=== PATIENT | female | born 1945 | race Caucasian/White ===

== ENCOUNTER 2016-07-09 09:08 | Inpatient (IN) | payer MEDICARE, BC ==
[~2016-07-09] VITALS: Ht 165.1 cm; Wt 44.2 kg
[~2016-07-09 09:08] MED LIST: ALPR0.5T6 PO; BUPR150T6 PO; DIVA500T4 PO; MIRT15TA3 PO; MORP30TA3 PO; OXYC5TAB PO; PARO10TA3 PO
[2016-07-09] MEDS ORDERED: MAGNESIUM HYDROXIDE 2,400 MG/30 ML ORAL.SUSP. PO PRN (11:00)
[2016-07-09] MEDS ORDERED: tiZANidine 4 MG TABLET. PO PRN (11:00)
[2016-07-09] MEDS ORDERED: OXYCODONE/APAP 7.5/325 TABLET. PO PRN (11:00)
[2016-07-09] MEDS ORDERED: MAG HYDROX/ALUMINUM HYD/SIMETH 30 ML ORAL.SUSP PO PRN (11:00)
[2016-07-09] MEDS ORDERED: 0.9 % SODIUM CHLORIDE 10 ML DISP.SYRIN. IV PRN (11:00)
--- NOTE | 2016-07-09 11:48 | PDOC1 ---
History and Physical Date of Admission Date of Admission DATE: 07/09/16 TIME: 11:44 Identification/Chief Complaint Chief Complaint Intractable migraine Source Source: Chart review, Patient History of Present Illness History of Present Illness The patient is a 70-year-old right-handed female whom I have followed for 25 years regarding intractable migraine headaches. 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 She has failed on a variety of medications including Botox. She has failed on occipital nerve stimulator. Occasionally she responds to pulse steroids. She almost always responds to a course of DHE, with the last course 5 months ago giving her at least 3 weeks of relief. Her headaches have been worse since he underwent electroconvulsive therapy last fall. There is no history of stroke, seizure, or significant head injury. Past Medical History CENTRAL NERVOUS SYSTEM: Migraine GI: Diverticulosis, Irritable bowel disease Hepatobiliary: Other Psych: Bipolar Past Surgical History Past Surgical History: Appendectomy, Cholecystectomy, , Hysterectomy, Other Family History Family History: No Significant Social History ALCOHOL: rare Drugs: None Current Problem List Problem List Problems Medical Problems: (1) Intractable migraine Status: Acute Problems: Current Medications Current Medications Current Medications Sodium Chloride (Normal Saline Flush) 3 ml PRN DAILY PRN IV AFTER MEDS AND BLOOD DRAWS; Start 07/09/16 at 11:00 Al Hydroxide/Mg Hydroxide (Mylanta Plus Xs) 30 ml PRN Q3HRS PRN PO HEARTBURN / GAS; Start 07/09/16 at 11:00 Magnesium Hydroxide (Milk Of Magnesia) 2,400 mg PRN Q12HR PRN PO CONSTIPATION; Start 07/09/16 at 11:00 Tizanidine HCl (Zanaflex) 8 mg PRN Q8HRS PRN PO MUSCLE SPASMS; Start 07/09/16 at 11:00 Mirtazapine (Remeron) 15 mg QHS PO ; Start 07/09/16 at 21:00 Oxycodone/ Acetaminophen (Percocet 7.5/ 325) 1 tab PRN Q6HRS PRN PO PAIN; Start 07/09/16 at 11:00 Divalproex Sodium (Depakote Er) 1,500 mg QHS PO ; Start 07/09/16 at 21:00 Dihydroergotamine Mesylate (Dhe) 1 mg Q8HRS IVP ; Start 07/09/16 at 14:00; Stop 07/12/16 at 06:00; Status UNV Metoclopramide HCl (Reglan) 10 mg Q8HRS IV ; Start 07/09/16 at 14:00; Status UNV Diphenoxylate HCl/ Atropine (Lomotil) 1 tab PRN QID PRN PO DIARRHEA; Start at 11:00 Active Scripts Active Paroxetine Hcl 10 Mg Tablet 30 Mg PO HS Oxycodone Hcl 5 Mg Tablet 5 Mg PO PRN Q6HRS PRN Morphine Sulfate Er (Morphine Sulfate) 30 Mg Tablet.er 30 Mg PO PRN BID PRN Mirtazapine 15 Mg Tablet 15 Mg PO QHS Depakote Er (Divalproex Sodium) 500 Mg Tab.er.24h 2,000 Mg PO QHS Bupropion Xl (Bupropion Hcl) 150 Mg Tab.er.24h 300 Mg PO DAILY Alprazolam 0.5 Mg Tablet 0.5 Mg PO PRN Q6HRS PRN Allergies Allergies: Coded Allergies: No Known Drug Allergies (Unverified , 01/14/16) ROS Review of System Negative for fevers, chills, weight loss, shortness of breath, chest pain, indigestion, hematochezia, melena, dysuria. Full 14-point review systems is negative. Physical Exam Physical Exam PHYSICAL EXAMINATION: Vital signs: see above. General appearance is normal and in no acute distress. HEENT: Normocephalic and nontraumatic. Eyes, nose, ears, and throat are unremarkable. Neck is supple. No lymphadenopathy. No bruits are heard over the carotid artery. No crepitus. Cardiovascular: S1, S2, regular rate and rhythm. Pulmonary: Clear to auscultation bilaterally. Abdomen: Bowel sounds are positive. Abdomen is soft, nontender, and nondistended. No organomegaly. No masses palpable. Extremities: No rash, lesions, or edema. No restriction of range of motion. No clubbing, cyanosis, edema NEUROLOGICAL EXAMINATION: Mental Status Examination: Alert. Oriented to time, place, and person. Answers questions and follows commends. Pupils are equal round and reactive to light and accommodation. Funduscopic exam: No papilledema. Extraocular movements are intact. Visual field exam shows no defect on the direct confrontation. No motor or sensory deficits on the facial exam. Uvula in the midline and the soft palate elevated symmetrically. No deviation of the tongue to any direction. Gross hearing is normal. Shoulder shrug normal. Muscle tone is normal. Muscle strength is 5. Deep tendon reflexes are 2+ all around. Plantar reflex is with flexion response bilaterally. [id number] test performance is accurate. Tandem walk test is accurate. Alternative movements are accurate. Romberg test is negative. Gait is normal. Sensory exam shows no deficits. No cerebellar signs are elicited. VTE Prophylaxis Ordered VTE Prophylaxis Devices: Yes VTE Pharmacological Prophylaxi: Yes Assessment/Plan Assessment/Plan Impression: Intractable daily migraine headache Bipolar disorder Plan: Labwork tomorrow, including sedimentation rate. DHE 45, Aggie protocol, patient understands risk, benefits, alternatives I omitting steroids as patient had some hyperglycemia last time. I do not see a need for repeat brain imaging studies Estimated length of stay is 3 days LG SCHWAB MD Jul 09, 2016 11:48
[2016-07-09 12:42] VITALS: BP 105/41
[2016-07-09] MEDS ORDERED: CLON0.5T PO (13:22)
[2016-07-09] MEDS ORDERED: LEVO25TA2 PO (13:22)
[2016-07-09] MEDS ORDERED: MIRT45TA PO (13:22)
[2016-07-09] MEDS: METOCLOPRAMIDE HCL 10 MG/2 ML VIAL. IV SCH ×2 (14:39→21:34)
[2016-07-09] MEDS: DIHYDROERGOTAMINE 1 MG/ML AMPUL. IVP SCH ×2 (14:44→22:18)
[2016-07-09 15:00] VITALS: BP 117/48
[2016-07-09] MEDS ORDERED: ALBUTEROL SULFATE 2.5 MG/3 ML NEBU. NEB PRN (16:45)
[2016-07-09] MEDS ORDERED: hydrALAZINE 20 MG/ML VIAL. IVP PRN (16:45)
[2016-07-09] MEDS ORDERED: ACETAMINOPHEN 325 MG TABLET. PO PRN (16:45)
[2016-07-09] MEDS ORDERED: HYDROCODONE/APAP 5/325MG TABLET. PO PRN (16:45)
[2016-07-09 19:00] VITALS: BP 139/49
[2016-07-09] MEDS: DIVALPROEX EXTENDED RELEASE 500 MG TAB.ER.24H. PO SCH (20:45)
[2016-07-09] MEDS: MIRTAZAPINE 15 MG TABLET PO SCH (20:45)
--- NOTE | 2016-07-09 21:23 | PDOC2 ---
CONSULT Date of Consult Date of Consult DATE: 07/09/16 TIME: 21:22 Reason for Consult Reason for Consult: Direct Admit Referring Physician Referring Physician: DR GONZALEZ History of Present Illness Reason for Visit: A 71 female with hx of Migraines for long time > 40 years, presented to the ER for intractable headaches, not better with home remedies, she has been following Dr Gonzalez for > 25 years, gets DHE frequently for migraine attacks , Pt was admitted directly, denies any symptoms, planned for 8 doses of DHE, At the time of my exam, pt is reading book, headache is minimal, 4/10, denies any fever, chills. Past Medical History CENTRAL NERVOUS SYSTEM: Migraine GI: Diverticulosis, Irritable bowel disease Hepatobiliary: Other Psych: Bipolar Past Surgical History Past Surgical History: Appendectomy, Cholecystectomy, , Hysterectomy, Other Family History Family History: No Significant Social History ALCOHOL: rare Drugs: None Current Problem List Problem List Problems Medical Problems: (1) Intractable migraine Status: Acute Current Medications Current Medications Current Medications Sodium Chloride (Normal Saline Flush) 3 ml PRN DAILY PRN IV AFTER MEDS AND BLOOD DRAWS; Start 07/09/16 at 11:00 Al Hydroxide/Mg Hydroxide (Mylanta Plus Xs) 30 ml PRN Q3HRS PRN PO HEARTBURN / GAS; Start 07/09/16 at 11:00 Magnesium Hydroxide (Milk Of Magnesia) 2,400 mg PRN Q12HR PRN PO CONSTIPATION; Start 07/09/16 at 11:00 Tizanidine HCl (Zanaflex) 8 mg PRN Q8HRS PRN PO MUSCLE SPASMS; Start 07/09/16 at 11:00 Mirtazapine (Remeron) 15 mg QHS PO Last administered on 07/09/16 20:45; Start 07/09/16 at 21:00 Oxycodone/ Acetaminophen (Percocet 7.5/ 325) 1 tab PRN Q6HRS PRN PO PAIN; Start 07/09/16 at 11:00 Divalproex Sodium (Depakote Er) 1,500 mg QHS PO Last administered on 07/09/16 20:45; Start 07/09/16 at 21:00 Dihydroergotamine Mesylate (Dhe) 1 mg Q8HRS IVP Last administered on 3/31/17at 14:44; Start 07/09/16 at 14:00; Stop 07/12/16 at 06:00 Metoclopramide HCl (Reglan) 10 mg Q8H IV Last administered on 07/09/16t 14:39; Start 07/09/16 at 13:30 Diphenoxylate HCl/ Atropine (Lomotil) 1 tab PRN QID PRN PO DIARRHEA; Start at 11:00 Acetaminophen (Tylenol) 325 mg PRN Q6HRS PRN PO MILD PAIN / TEMP; Start at 16:45 Acetaminophen/ Hydrocodone Bitart (Lortab 5/325) 1 tab PRN Q6HRS PRN PO MODERATE TO SEVERE PAIN; Start 07/09/16 at 16:45 Hydralazine HCl (Apresoline) 10 mg PRN Q4HRS PRN IVP ELEVATED BP, SEE COMMENTS ; Start 07/09/16 at 16:45 Ondansetron HCl (Zofran) 4 mg PRN Q8HRS PRN IV NAUSEA/VOMITING; Start 07/09/16 at 16:45 Albuterol Sulfate (Ventolin Neb Soln) 2.5 mg PRN Q4HRS PRN NEB SHORTNESS OF BREATH; Start 07/09/16 at 16:45 Active Scripts Active Paroxetine Hcl 10 Mg Tablet 30 Mg PO HS Oxycodone Hcl 5 Mg Tablet 5 Mg PO PRN Q6HRS PRN Morphine Sulfate Er (Morphine Sulfate) 30 Mg Tablet.er 30 Mg PO PRN BID PRN Mirtazapine 15 Mg Tablet 15 Mg PO QHS Depakote Er (Divalproex Sodium) 500 Mg Tab.er.24h 2,000 Mg PO QHS Bupropion Xl (Bupropion Hcl) 150 Mg Tab.er.24h 300 Mg PO DAILY Alprazolam 0.5 Mg Tablet 0.5 Mg PO PRN Q6HRS PRN Reported Klonopin (Clonazepam) 0.5 Mg Tablet 1 Tab PO DAILY Synthroid (Levothyroxine Sodium) 25 Mcg Tablet 1 Tab PO DAILY Remeron (Mirtazapine) 45 Mg Tablet 45 Mg PO DAILY Allergies Allergies: Coded Allergies: No Known Drug Allergies (Unverified , 01/14/16) ROS Review of System CONSTITUTIONAL: No fever or chills EYES: No recent changes SKIN: No rash or itching CARDIOVASCULAR: No chest pain, syncope, palpitations, or edema RESPIRATORY: No SOB or cough GASTROINTESTINAL: No nausea, vomiting or abdominal pain NEUROLOGICAL: headaches ENDOCRINE: No cold or heat intolerance GENITOURINARY: No urgency or frequency of urination MUSCULOSKELETAL: No back pain or joint pain LYMPHATICS: No enlarged lymph nodes PSYCHIATRIC: No anxiety or depression Physical Exam Physical Exam GENERAL: No apparent distress. Alert and oriented. HEENT: Head normocephalic, atraumatic. NECK: Supple LUNGS: Clear to auscultation. HEART: RRR, S1, S2 present, pulses intact ABDOMEN: Soft, positive bowel sounds. EXTREMITIES: No cyanosis or edema. NEUROLOGIC: Normal speech, normal tone PSYCHIATRIC: Normal affect, normal mood. SKIN: No ulceration. Vitals VITALS Vital Signs Date Time Temp Pulse Resp B/P Pulse Ox O2 Delivery O2 Flow Rate FiO2 07/09/16 19:00 98.1 60 18 139/49 98 Room Air 98.1 Assessment/Plan Assessment/Plan Intractable Migraine attacks Bipolar disorder Plan DHE per protocol. PRN Tylenol CBC/BMP in am Hemodynamically stable. supportive care JONAS MA MD Jul 09, 2016 21:23
[2016-07-09 23:00] VITALS: BP 151/51
[2016-07-10 03:00] VITALS: BP 131/52
[2016-07-10 05:33] LABS: BASO % 1 % (0-3); EOS % 3 % (0-3); HEMATOCRIT 38.9 % (36.0-47.0); HEMOGLOBIN 12.9 g/dL (12.0-15.5); LYMPH # 1.8 x10^3/uL (1.0-4.8); LYMPH % 36 % (24-48); MEAN CORPUSCULAR HEMOGLOBIN 32 pg (25-35); MEAN CORPUSCULAR HGB CONC 33 g/dL (31-37); MEAN CORPUSCULAR VOLUME 97 fL (79-100); MONO % 9 % (0-9); NEUT % 51 % (31-73); PLATELET COUNT 135 x10^3/uL (140-400); RED BLOOD COUNT 4.02 x10^6/uL (3.50-5.40); RED CELL DISTRIBUTION WIDTH 13.3 % (11.5-14.5)
[2016-07-10] MEDS: METOCLOPRAMIDE HCL 10 MG/2 ML VIAL. IV SCH (05:34)
[2016-07-10 05:59] LABS: CALCIUM 8.7 mg/dL (8.5-10.1); CREATININE 0.9 mg/dL (0.6-1.0); GFR 61.7; POTASSIUM 3.8 mmol/L (3.5-5.1)
[2016-07-10] MEDS: DIHYDROERGOTAMINE 1 MG/ML AMPUL. IVP SCH ×3 (06:18→22:00)
[2016-07-10 07:41] VITALS: BP 140/54
--- NOTE | 2016-07-10 09:26 | PDOC ---
PROGRESS NOTES Chief Complaint Chief Complaint Intractable migraine ASSESSMENT AND PLAN: 1. Migraine: med regimen as per neurology 2. Nausea: related to (1.). on reglan 3. HTN: borderline high, poss pain-related. hydralazine PRN 4. Bradycardia: asymptomatic. monitor. d/w her: apparently new to her, sees PCP regularly. may need O/P cardiac eval 5. Pain control: on percocet PRN 6. Prophylaxis: lovenox, PPI Vitals Vitals Vital Signs Date Time Temp Pulse Resp B/P Pulse Ox O2 Delivery O2 Flow Rate FiO2 07/10/16 07:41 98.6 44 16 140/54 94 Room Air 98.6 Physical Exam General: Alert, Oriented X3, Cooperative, No acute distress Heart: Regular rate Lungs: Clear Abdomen: Normal bowel sounds, Soft, No tenderness Extremities: No edema Skin: No rashes Labs LABS Laboratory Tests Test 07/10/16 04:55 White Blood Count 5.0x10^3/uL (4.0-11.0) Red Blood Count 4.02x10^6/uL (3.50-5.40) Hemoglobin 12.9g/dL (12.0-15.5) Hematocrit 38.9% (36.0-47.0) Mean Corpuscular Volume 97fL (79-100) Mean Corpuscular Hemoglobin 32pg (25-35) Mean Corpuscular Hemoglobin Concent 33g/dL (31-37) Red Cell Distribution Width 13.3% (11.5-14.5) Platelet Count 135x10^3/uL (140-400) Neutrophils (%) (Auto) 51% (31-73) Lymphocytes (%) (Auto) 36% (24-48) Monocytes (%) (Auto) 9% (0-9) Eosinophils (%) (Auto) 3% (0-3) Basophils (%) (Auto) 1% (0-3) Neutrophils # (Auto) 2.5x10^3uL (1.8-7.7) Lymphocytes # (Auto) 1.8x10^3/uL (1.0-4.8) Monocytes # (Auto) 0.5x10^3/uL (0.0-1.1) Eosinophils # (Auto) 0.2x10^3/uL (0.0-0.7) Basophils # (Auto) 0.0x10^3/uL (0.0-0.2) Sodium Level 145mmol/L (136-145) Potassium Level 3.8mmol/L (3.5-5.1) Chloride Level 111mmol/L (98-107) Carbon Dioxide Level 28mmol/L (21-32) Anion Gap 6 (6-14) Blood Urea Nitrogen 12mg/dL (7-20) Creatinine 0.9mg/dL (0.6-1.0) Estimated GFR (Cockcroft-Gault) 61.7 Glucose Level 85mg/dL (70-99) Calcium Level 8.7mg/dL (8.5-10.1) Review of Systems Review of Systems NESBITT pretty much resolved. no new c/o EDMUND PARK MD Jul 10, 2016 09:26
[2016-07-10] MEDS: ENOXAPARIN 40 MG/0.4 ML SYRINGE. SQ SCH (09:30)
[2016-07-10] MEDS: PANTOPRAZOLE 40 MG TABLET.DR. PO SCH (10:35)
[2016-07-10] MEDS ORDERED: METOCLOPRAMIDE HCL 10 MG/2 ML VIAL. IV PRN (10:45)
[2016-07-10] MEDS: LOPERAMIDE 2 MG CAPSULE PO PRN (11:05)
[2016-07-10 11:55] VITALS: BP 142/55
--- NOTE | 2016-07-10 12:53 | PDOC ---
PROGRESS NOTES Assessment Assessment IMPRESSION: Intractable headaches. Chronic migraine headache. Bipolar disorder. IBD Psychiatric problems. Other medical problems. RECOMMENDATIONS/PLAN: DHE [address] q[address] Henderson. Symptomatic treatment. Treat medical diseases. History of Present Illness The patient is a 70-year-old right-handed female whom I have followed for 25 years regarding intractable migraine headaches. 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 She has failed on a variety of medications including Botox. She has failed on occipital nerve stimulator. Occasionally she responds to pulse steroids. She almost always responds to a course of DHE, with the last course 5 months ago giving her at least 3 weeks of relief. Her headaches have been worse since he underwent electroconvulsive therapy last fall. There is no history of stroke, seizure, or significant head injury. She stated that her headaches were improved on 07/10. Past Medical History CENTRAL NERVOUS SYSTEM: Migraine GI: Diverticulosis, Irritable bowel disease Hepatobiliary: Other Psych: Bipolar Past Surgical History Past Surgical History: Appendectomy, Cholecystectomy, , Hysterectomy Family History No Significant Social History ALCOHOL: rare Drugs: None ALLERGY: Reviewed. MEDICATIONS: Refer to MAR REVIEW OF SYSTEMS: Constitutional: No malnutrition, weight loss, cachexia. Head: No traumatic brain or head injury. Skin: No edema, or rash. Ear: No infection, tinnitus. Eyes: No vision loss, or diplopia. Nose: No bleeding or purulent discharges. Hearing: No hearing decrease. Neck: No injury. Breast: No history of cancer, masses, or discharges. Cardiac: No CA, arrhythmia Pulmonary: No CPOD. GI: No GI Ulcer, GI bleeding Urinary/genital: UTI. Endocrine: No cousin face, craniofacial dysmorphism, polydactyly. Skeletomuscular: No muscular atrophy, deformity. Neurological: see HP. Psychiatric: Denies drug use/abuse. Otherwise, not [id number] review of systems. PHYSICAL EXAMINATION: General appearance in mild subacute distress. HEENT: Normocephalic and nontraumatic. Eyes, nose, ears, and throat are unremarkable. Hearing decrease. Neck is supple. No lymphadenopathy. No bruits are heard over the carotid artery. No Crepitus. Cardiovascular: S1, S2, regular rate and rhythm. Pulmonary: Clear to auscultation bilaterally. Abdomen: Bowel sounds are positive. Abdomen is soft, nontender, and nondistended. Extremities: No rash, lesions, or edema. No restriction of range of motion NEUROLOGICAL EXAMINATION: Alert. Oriented to time, place and person. PERRL. EOMI. CN: no focal findings. Muscle tone: within normal. Muscle strength: 5 DTR: 2 Plantar reflex: Flexor response bilaterally Gait: not examined in bed. Sensory exam: no abnormal findings. No cerebellar signs elicited. F-T-N test accurate. Objective Objective Vital Signs Date Time Temp Pulse Resp B/P Pulse Ox O2 Delivery O2 Flow Rate FiO2 07/10/16 11:55 97.9 51 16 142/55 94 Room Air 97.9 Intake and Output 07/10/16 07:00 Intake Total 750 ml Balance 750 ml Intake Oral 750 ml # Voids 6 Vitals Signs Vitals VS - Last 72 Hours, by Label Date Time Temp Pulse Resp B/P Pulse Ox O2 Delivery O2 Flow Rate FiO2 07/10/16 11:55 97.9 51 16 142/55 94 Room Air 97.9 07/10/16 08:00 Room Air 07/10/16 07:41 98.6 44 16 140/54 94 Room Air 98.6 07/10/16 03:00 98.1 60 16 131/52 98 Room Air 98.1 07/09/16 23:00 98.2 52 16 151/51 92 Room Air 98.2 07/09/16 20:20 Room Air 07/09/16 19:00 98.1 60 18 139/49 98 Room Air 98.1 07/09/16 15:00 97.1 71 16 117/48 96 97.1 07/09/16 12:42 96.7 64 16 105/41 93 Room Air 96.7 Laboratory Laboratory Laboratory Tests Test 07/10/16 04:55 White Blood Count 5.0x10^3/uL (4.0-11.0) Red Blood Count 4.02x10^6/uL (3.50-5.40) Hemoglobin 12.9g/dL (12.0-15.5) Hematocrit 38.9% (36.0-47.0) Mean Corpuscular Volume 97fL (79-100) Mean Corpuscular Hemoglobin 32pg (25-35) Mean Corpuscular Hemoglobin Concent 33g/dL (31-37) Red Cell Distribution Width 13.3% (11.5-14.5) Platelet Count 135x10^3/uL (140-400) Neutrophils (%) (Auto) 51% (31-73) Lymphocytes (%) (Auto) 36% (24-48) Monocytes (%) (Auto) 9% (0-9) Eosinophils (%) (Auto) 3% (0-3) Basophils (%) (Auto) 1% (0-3) Neutrophils # (Auto) 2.5x10^3uL (1.8-7.7) Lymphocytes # (Auto) 1.8x10^3/uL (1.0-4.8) Monocytes # (Auto) 0.5x10^3/uL (0.0-1.1) Eosinophils # (Auto) 0.2x10^3/uL (0.0-0.7) Basophils # (Auto) 0.0x10^3/uL (0.0-0.2) Sodium Level 145mmol/L (136-145) Potassium Level 3.8mmol/L (3.5-5.1) Chloride Level 111mmol/L (98-107) Carbon Dioxide Level 28mmol/L (21-32) Anion Gap 6 (6-14) Blood Urea Nitrogen 12mg/dL (7-20) Creatinine 0.9mg/dL (0.6-1.0) Estimated GFR (Cockcroft-Gault) 61.7 Glucose Level 85mg/dL (70-99) Calcium Level 8.7mg/dL (8.5-10.1) Medication Medications Current Medications Acetaminophen (Tylenol) 325 mg PRN Q6HRS PRN PO MILD PAIN / TEMP; Start at 16:45 Acetaminophen/ Hydrocodone Bitart (Lortab 5/325) 1 tab PRN Q6HRS PRN PO MODERATE TO SEVERE PAIN; Start 07/09/16 at 16:45 Albuterol Sulfate (Ventolin Neb Soln) 2.5 mg PRN Q4HRS PRN NEB SHORTNESS OF BREATH; Start 07/09/16 at 16:45 Dihydroergotamine Mesylate (Dhe) 1 mg Q8HRS IVP Last administered on 07/10/16t 06:18; Start 07/09/16 at 14:00; Stop 07/12/16 at 06:00 Divalproex Sodium (Depakote Er) 1,500 mg QHS PO Last administered on 07/09/16 20:45; Start 07/09/16 at 21:00 Enoxaparin Sodium (Lovenox 40mg Syringe) 40 mg Q24H SQ ; Start 07/10/16 at 09:30 Hydralazine HCl (Apresoline) 10 mg PRN Q4HRS PRN IVP ELEVATED BP, SEE COMMENTS ; Start 07/09/16 at 16:45 Loperamide HCl (Imodium) 2 mg PRN Q1HR PRN PO DIARRHEA Last administered on 07/10 11:05; Start 07/10/16 at 10:45 Metoclopramide HCl (Reglan) 10 mg PRN TID PRN IV NAUSEA; Start 07/10/16 at 10:45 Metoclopramide HCl (Reglan) 10 mg Q8H IV Last administered on 07/10/16 05:34; Start 07/09/16 at 13:30; Stop 07/10/16 at 10:43; Status DC Mirtazapine (Remeron) 15 mg QHS PO Last administered on 07/09/16 20:45; Start 07/09/16 at 21:00 Ondansetron HCl (Zofran) 4 mg PRN Q8HRS PRN IV NAUSEA/VOMITING; Start 07/09/16 at 16:45 Pantoprazole Sodium (Protonix) 40 mg DAILYAC PO Last administered on 07/10/16 10:35; Start 07/10/16 at 11:30 Comment Review of Relevant I have reviewed the following items hiral (where applicable) has been applied. AILEEN SANTOYO MD Jul 10, 2016 12:53
[2016-07-10] MEDS: DIPHENOXYLATE/ATROPINE TABLET. PO PRN ×2 (12:55→20:23)
[2016-07-10 15:49] VITALS: BP 121/31
[2016-07-10 19:30] VITALS: BP 137/37
[2016-07-10] MEDS: MIRTAZAPINE 15 MG TABLET PO SCH (20:23)
[2016-07-10] MEDS: DIVALPROEX EXTENDED RELEASE 500 MG TAB.ER.24H. PO SCH (20:23)
[2016-07-10 23:30] VITALS: BP 139/43
[2016-07-11] VITALS (7 sets, daily range): BP systolic 121–158; BP diastolic 38–60
[2016-07-11] MEDS: LOPERAMIDE 2 MG CAPSULE PO PRN ×4 (03:57→20:10)
[2016-07-11] MEDS: DIHYDROERGOTAMINE 1 MG/ML AMPUL. IVP SCH (05:53)
[2016-07-11] MEDS: ONDANSETRON PF 4 MG/2 ML VIAL. IV PRN ×2 (08:19→20:15)
[2016-07-11] MEDS: ENOXAPARIN 40 MG/0.4 ML SYRINGE. SQ SCH (08:21)
[2016-07-11] MEDS: PANTOPRAZOLE 40 MG TABLET.DR. PO SCH (08:21)
--- NOTE | 2016-07-11 10:19 | PDOC ---
PROGRESS NOTES Chief Complaint Chief Complaint Intractable migraine ASSESSMENT AND PLAN: 1. Migraine: med regimen as per neurology 2. Nausea: related to (1.). on reglan, but with diarrhea. switch to compazine 3. Diarrhea: chronic issue, but severe here. pt wants to go home ( embarrassed). increase lomotil to 2 4. HTN: borderline high, poss pain-related. hydralazine PRN 5. Bradycardia: asymptomatic. monitor. d/w her: apparently new to her, sees PCP regularly. HR dropping into 30s. cardiac consult, transfer to 2nd floor 6. Pain control: on percocet PRN 7. Prophylaxis: lovenox, PPI Vitals Vitals Vital Signs Date Time Temp Pulse Resp B/P Pulse Ox O2 Delivery O2 Flow Rate FiO2 07/11/16 09:20 16 95 Room Air 07/11/16 07:42 97.5 41 158/55 97.5 Physical Exam General: Alert, Oriented X3, Cooperative, No acute distress Heart: Other (idania) Lungs: Clear Abdomen: Normal bowel sounds, Soft, No tenderness Extremities: No edema Skin: No rashes Labs LABS Laboratory Tests Test 07/10/16 11:35 Erythrocyte Sedimentation Rate 8 (0-25) Review of Systems Review of Systems more nauseous today, + diarrhea, wants to go home EDMUND PARK MD Jul 11, 2016 10:19
--- NOTE | 2016-07-11 10:39 | EKG ---
[facility] [address] [place] [address] Test Date: 2016-07-11 Test Time: 09:31:51 Pat Name: NABIL TOMPKINS Department: Room: [facility] Gender: F Disease Control Inspector: NARESH : 1945 Requested By: EDMUND PARK Order Number: [id number] Reading MD: Jaci Becerril Measurements Intervals [place] Rate: 42 P: 54 NE: 134 QRS: 27 QRSD: 78 T: 31 QT: 468 QTc: 393 Interpretive Statements SINUS BRADYCARDIA QRS(T) CONTOUR ABNORMALITY CONSIDER ANTEROLATERAL MYOCARDIAL DAMAGE POSSIBLY ABNORMAL ECG RI6.01 Unconfirmed report No previous ECG available for comparison Electronically Signed On 07-11-2016 19:28:42 CDT by Jaci Becerril
[2016-07-11] MEDS ORDERED: OXYCODONE IR 5 MG TABLET. PO PRN (10:45)
[2016-07-11] MEDS ORDERED: CLONAZEPAM 0.5 MG TABLET PO PRN (10:45)
[2016-07-11] MEDS ORDERED: MORPHINE ER 30 MG TABLET.ER PO PRN (10:45)
[2016-07-11] MEDS: LEVOTHYROXINE 25 MCG TABLET. PO SCH (11:26)
[2016-07-11] MEDS: buPROPion XL 150 MG TAB.ER.24H. PO SCH (11:27)
[2016-07-11] MEDS ORDERED: DIPHENOXYLATE/ATROPINE TABLET. PO PRN (11:30)
[2016-07-11] MEDS ORDERED: PROCHLORPERAZINE 10 MG/2 ML VIAL. IV ONE (12:00)
--- NOTE | 2016-07-11 15:03 | PDOC ---
PROGRESS NOTES Assessment Assessment Intractable headaches. Chronic migraine headache. Bradycardia, HR 34 A-V block Mobitz grade II. Bigeminal, frequent. CAD Bipolar disorder. IBD Psychiatric problems. Other medical problems. RECOMMENDATIONS/PLAN: Discontinue DHE. Transferred to Cardiology Unit. Cardiology consulted. Symptomatic treatment for headache. Treat medical diseases. History of Present Illness The patient is a 70-year-old right-handed female whom I have followed for 25 years regarding intractable migraine headaches. 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 She has failed on a variety of medications including Botox. She has failed on occipital nerve stimulator. Occasionally she responds to pulse steroids. She almost always responds to a course of DHE, with the last course 5 months ago giving her at least 3 weeks of relief. Her headaches have been worse since he underwent electroconvulsive therapy last fall. There is no history of stroke, seizure, or significant head injury. She stated that her headaches were improved to 1-2/10 since 07/10. She was found to have bradycardia HR 30s in am on 07/11, so she was put on telemetry monitoring which showed HR 34 to 38/min, frequent bigeminal. Reviewed her EKG monitoring and thought she had Mobitz grade II A-V block that lasted for > 2 hours. So she was transferred to Cardiology Unit. DHE was discontinued agreeable by Neurology and Cardiology. Past Medical History CENTRAL NERVOUS SYSTEM: Migraine GI: Diverticulosis, Irritable bowel disease Hepatobiliary: Other Psych: Bipolar Past Surgical History Past Surgical History: Appendectomy, Cholecystectomy, , Hysterectomy Family History No Significant Social History ALCOHOL: rare Drugs: None ALLERGY: Reviewed. MEDICATIONS: Refer to MAR REVIEW OF SYSTEMS: Constitutional: No malnutrition, weight loss, cachexia. Head: No traumatic brain or head injury. Skin: No edema, or rash. Ear: No infection, tinnitus. Eyes: No vision loss, or diplopia. Nose: No bleeding or purulent discharges. Hearing: No hearing decrease. Neck: No injury. Breast: No history of cancer, masses, or discharges. Cardiac: No NH, arrhythmia Pulmonary: No CPOD. GI: No GI Ulcer, GI bleeding Urinary/genital: UTI. Endocrine: No cousin face, craniofacial dysmorphism, polydactyly. Skeletomuscular: No muscular atrophy, deformity. Neurological: see HP. Psychiatric: Denies drug use/abuse. Otherwise, not [id number] review of systems. PHYSICAL EXAMINATION: General appearance in mild subacute distress. HEENT: Normocephalic and nontraumatic. Eyes, nose, ears, and throat are unremarkable. Hearing decrease. Neck is supple. No lymphadenopathy. No bruits are heard over the carotid artery. No Crepitus. Cardiovascular: S1, S2, regular rate and rhythm. Pulmonary: Clear to auscultation bilaterally. Abdomen: Bowel sounds are positive. Abdomen is soft, nontender, and nondistended. Extremities: No rash, lesions, or edema. No restriction of range of motion NEUROLOGICAL EXAMINATION: Alert. Oriented to time, place and person. PERRL. EOMI. CN: no focal findings. Muscle tone: within normal. Muscle strength: 5- DTR: 2 Plantar reflex: Flexor response bilaterally Gait: not examined in bed. Sensory exam: no abnormal findings. No cerebellar signs elicited. F-T-N test accurate. Objective Objective Vital Signs Date Time Temp Pulse Resp B/P Pulse Ox O2 Delivery O2 Flow Rate FiO2 07/11/16 13:15 98.1 36 16 121/38 94 Room Air 98.1 Intake and Output 07/11/16 07:00 Intake Total 600 ml Balance 600 ml Intake Oral 600 ml # Voids 3 # Bowel Movements 2 Vitals Signs Vitals VS - Last 72 Hours, by Label Date Time Temp Pulse Resp B/P Pulse Ox O2 Delivery O2 Flow Rate FiO2 07/11/16 13:15 98.1 36 16 121/38 94 Room Air 98.1 07/11/16 11:32 97.6 40 16 145/43 96 Room Air 97.6 07/11/16 09:20 16 95 Room Air 07/11/16 08:20 18 95 Room Air 07/11/16 08:00 Room Air 07/11/16 07:42 97.5 41 16 158/55 95 Room Air 97.5 07/11/16 03:30 97.5 49 16 145/56 95 Room Air 97.5 07/10/16 23:30 97.3 39 16 139/43 98 Room Air 97.3 07/10/16 20:20 Room Air 07/10/16 19:30 98.1 54 16 137/37 96 Room Air 98.1 07/10/16 15:49 98.7 67 16 121/31 94 Room Air 98.7 07/10/16 11:55 97.9 51 16 142/55 94 Room Air 97.9 07/10/16 08:00 Room Air 07/10/16 07:41 98.6 44 16 140/54 94 Room Air 98.6 Medication Medications Current Medications Bupropion HCl (Wellbutrin Xl) 300 mg DAILY PO ; Start 07/11/16 at 12:00 Bupropion HCl (Wellbutrin Xl) 300 mg DAILY PO ; Start 07/12/16 at 09:00; Stop 07/12/16 at 09:00; Status DC Clonazepam (Klonopin) 0.5 mg PRN TID PRN PO anxiety; Start 07/11/16 at 10:45 Diphenoxylate HCl/ Atropine (Lomotil) 1 tab PRN Q15MIN PRN PO DIARRHEA Last administered on 07/11/16 11:31; Start 07/11/16 at 11:30 Divalproex Sodium (Depakote Er) 2,000 mg QHS PO ; Start 07/11/16 at 21:00 Levothyroxine Sodium (Synthroid) 25 mcg DAILY07 PO ; Start 07/11/16 at 12:00 Mirtazapine (Remeron) 45 mg QHS PO ; Start 07/11/16 at 21:00 Morphine Sulfate (Ms Contin) 30 mg PRN BID PRN PO PAIN; Start 07/11/16 at 10:45 Oxycodone HCl (Roxicodone) 5 mg PRN Q6HRS PRN PO PAIN; Start 07/11/16 at 10:45 Paroxetine HCl (Paxil) 30 mg HS PO ; Start 07/11/16 at 21:00 Prochlorperazine Edisylate (Compazine) 10 mg 1X ONCE IV Last administered on 11:31; Start 07/11/16 at 12:00; Stop 07/11/16 at 12:01; Status DC Comment Review of Relevant I have reviewed the following items hiral (where applicable) has been applied. AILEEN SANTOYO MD Jul 11, 2016 15:03
[2016-07-11] MEDS ORDERED: PROCHLORPERAZINE 10 MG/2 ML VIAL. IV PRN (18:00)
[2016-07-11] MEDS: DIVALPROEX EXTENDED RELEASE 500 MG TAB.ER.24H. PO SCH (20:21)
[2016-07-11] MEDS: MIRTAZAPINE 15 MG TABLET PO SCH (20:24)
[2016-07-11] MEDS ORDERED: MIRTAZAPINE 15 MG TABLET PO SCH (21:00)
[2016-07-11] MEDS ORDERED: DIVALPROEX EXTENDED RELEASE 500 MG TAB.ER.24H. PO SCH (21:00)
[2016-07-11] MEDS ORDERED: PAROXETINE 10 MG TABLET. PO SCH (21:00)
[2016-07-12 03:00] VITALS: BP 116/58
[2016-07-12] MEDS: LEVOTHYROXINE 25 MCG TABLET. PO SCH (07:10)
[2016-07-12] MEDS: PANTOPRAZOLE 40 MG TABLET.DR. PO SCH (07:10)
[2016-07-12 07:59] VITALS: BP 93/50
[2016-07-12] MEDS ORDERED: buPROPion XL 150 MG TAB.ER.24H. PO SCH (09:00)
[2016-07-12] MEDS: buPROPion XL 150 MG TAB.ER.24H. PO SCH (09:05)
[2016-07-12] MEDS: ENOXAPARIN 40 MG/0.4 ML SYRINGE. SQ SCH (09:07)
--- NOTE | 2016-07-12 09:35 | PDOC2 ---
JESE OLIVEIRA TURKEY EGG GATHERER 07/12/16 0935: CARDIAC CONSULT DATE OF CONSULT Date of Consult DATE: 07/12/16 TIME: 09:16 REASON FOR CONSULT Reason for Consult: Bradycardia REFERRING PHYSICIAN Referring Physician: Debbie SOURCE Source: Chart review, Patient HISTORY OF PRESENT ILLNESS HISTORY OF PRESENT ILLNESS This is a pleasant 71 yo female admitted for complains of uncontrolled migraine. She has been treated and her NESBITT is much better and actually currently denies any NESBITT. Consult is for bradycardia to which she has been noted with HR in the upper 30s and 40s but no symptoms. Reports no symptoms of dizziness, syncope, increasing fatigue, CP, nor SOA. Her mobility has been limited lately due to her NESBITT. Denies any cardiac meds and no prior hx of arrhythmia, CAD. She currently resides with her daughter and will be there for about 3-4 months then [place] From admission to this point she has not had any presyncopal nor syncopal nor palpitations. PAST MEDICAL HISTORY Cardiovascular: No pertinent hx Pulmonary: COPD CENTRAL NERVOUS SYSTEM: Migraine (with botox treatment) GI: Diverticulosis, GERD, Irritable bowel disease Heme/Onc: No pertinent hx Hepatobiliary: Other (liver mass) Psych: Bipolar, Other (prior ECT 2016) Musculoskeletal: Osteoarthritis Rheumatologic: No pertinent hx Infectious disease: No pertinent hx ENT: No pertinent hx Renal/: No pertinent hx Endocrine: Hypothyroidism Dermatology: No pertinent hx PAST SURGICAL HISTORY Past Surgical History: Appendectomy, Cholecystectomy, , Hysterectomy, Other (liver biopsy) FAMILY HISTORY Family History: Coronary Artery Disease (mother) SOCIAL HISTORY Smoke: No (quit 2 yrs ago 40 pk yr) CURRENT MEDICATIONS CURRENT MEDICATIONS Current Medications Medications (Trade) Dose Ordered Sig/Aria Route PRN Reason Start Time Stop Time Status Last Admin Dose Admin Levothyroxine Sodium (Synthroid) 25 mcg DAILY07 PO 07/11/16 12:00 07/12/16 07:10 Mirtazapine (Remeron) 45 mg QHS PO 07/11/16 21:00 07/11/16 20:21 Paroxetine HCl (Paxil) 30 mg HS PO 07/11/16 21:00 07/11/16 20:20 Bupropion HCl (Wellbutrin Xl) 300 mg DAILY PO 07/11/16 12:00 07/12/16 09:05 Prochlorperazine Edisylate (Compazine) 10 mg 1X ONCE IV 07/11/16 12:00 07/11/16 12:01 DC 07/11/16 11:31 Diphenoxylate HCl/ Atropine (Lomotil) 1 tab PRN Q15MIN PRN PO DIARRHEA 07/11/16 11:30 07/11/16 11:31 ALLERGIES ALLERGIES: Coded Allergies: No Known Drug Allergies (Unverified , 01/14/16) ROS Review of System 14 point ROS evaluated with pertinent positives noted per HPI PHYSICAL EXAM General: Alert, Oriented X3, Cooperative, No acute distress HEENT: Atraumatic, Mucous membr. moist/pink Lungs: Clear to auscultation, Normal air movement Heart: Regular rate, Normal S1, Normal S2, Other Extremities: No cyanosis, No edema Skin: No breakdown, No significant lesion Neuro: Normal speech, Sensation intact Psych/Mental Status: Mental status NL, Mood NL MUSCULOSKELETAL: Osteoarthritic changes both hands VITALS VITALS Vital Signs Date Time Temp Pulse Resp B/P Pulse Ox O2 Delivery O2 Flow Rate FiO2 07/12/16 07:59 97.8 60 16 93/50 87 Room Air 97.8 ASSESSMENT/PLAN ASSESSMENT/PLAN 1. Uncontrolled migraine: better, per neurology 2. Asymptomatic bradyarrhythmia: Currently SB in the upper 50s. notable for x1 tachycardia episode. Appears to be Mobitz type 1 (2:1 Wenckebach), noted more with sleep. Suspect induced vagally by sleep and HAs. QTc 393 3. Hypothyroidism: on replacement 4. COPD: controlled Recommendations 1. TTE and note any organic etiology 2. Ambulate hallway and note chronotropic response. 3. Repeat EKG, check Mg, CMP, TSH 4. Recommend Event monitor and rule out any possibility of tachy-idania. Pt would rather get this arrange with [facility] or [facility] since this facility is a little to far for her and her driving is limited with her medications. 5. Possible DC this afternoon. Problems: ALEX MURPHY MD 07/12/16 1423: CARDIAC CONSULT ALLERGIES ALLERGIES: Coded Allergies: No Known Drug Allergies (Unverified , 01/14/16) ASSESSMENT/PLAN ASSESSMENT/PLAN Patient seen and examined. Agree with INTEGRATED SPECIALIST's assessment and plan. Sinus bradycardia most probably vagally mediated. Telemetry did not show any evidence for sick sinus syndrome. 2-D echo showed normal LV systolic function. Plan for event monitor as an outpatient. Thank you for consultation. Problems: JESE OLIVEIRA APRN Jul 12, 2016 09:35 ALEX MURPHY MD Jul 12, 2016 14:23
--- NOTE | 2016-07-12 10:05 | EKG ---
[facility] [address] [place] [address] Test Date: 2016-07-12 Test Time: 10:03:00 Pat Name: NABIL TOMPKINS Department: Room: 211 1 Gender: F Broiler Chef Or Cook: CAPRI : 1945 Requested By: JESE OLIVEIRA Order Number: [id number] Reading MD: Jose A Weinberg Measurements Intervals Cana Rate: 56 P: 44 OR: 138 QRS: 9 QRSD: 78 T: 18 QT: 454 QTc: 441 Interpretive Statements SINUS RHYTHM Electronically Signed On 07-13-2016 10:09:43 CDT by Jose A Weinberg
[2016-07-12 10:39] LABS: ALBUMIN 2.6 g/dL (3.4-5.0); ALBUMIN/GLOBULIN RATIO 0.8 (1.0-1.7); CALCIUM 8.5 mg/dL (8.5-10.1); CREATININE 0.9 mg/dL (0.6-1.0); GFR 61.7; MAGNESIUM 2.2 mg/dL (1.8-2.4); POTASSIUM 3.5 mmol/L (3.5-5.1); TOTAL BILIRUBIN 0.4 mg/dL (0.2-1.0); TOTAL PROTEIN 5.9 g/dL (6.4-8.2)
[2016-07-12 11:12] VITALS: BP 95/49
[2016-07-12 11:13] VITALS: BP 91/52
[2016-07-12 11:14] VITALS: BP 95/57
--- NOTE | 2016-07-12 11:14 | PDOC ---
PROGRESS NOTES Assessment Problems Medical Problems: (1) Intractable migraine Status: Acute Migraine headaches, 05/21 now after DHE Bradycardia, not necessarily related to DHE, more likely due to headaches Bipolar disorder with history of psychogenic fugue state Note hyperglycemia, defer to internal medicine Plan Discharge later today depending on cardiology evaluation Subjective Headache 05/21, no other complaints Objective Vital Signs Date Time Temp Pulse Resp B/P Pulse Ox O2 Delivery O2 Flow Rate FiO2 07/12/16 07:59 97.8 60 16 93/50 87 Room Air 97.8 Intake and Output 07/12/16 07:00 Intake Total 400 ml Balance 400 ml Intake Oral 400 ml # Voids 3 # Bowel Movements 1 PHYSICAL EXAM PHYSICAL EXAMINATION: Vital signs: see above. General appearance is normal and in no acute distress. HEENT: Normocephalic and nontraumatic. Eyes, nose, ears, and throat are unremarkable. Neck is supple. No lymphadenopathy. No bruits are heard over the carotid artery. No crepitus. Cardiovascular: S1, S2, regular rate and rhythm. Pulmonary: Clear to auscultation bilaterally. Abdomen: Bowel sounds are positive. Abdomen is soft, nontender, and nondistended. No organomegaly. No masses palpable. Extremities: No rash, lesions, or edema. No restriction of range of motion. NEUROLOGICAL EXAMINATION: Mental Status Examination: Alert. Oriented to time, place, and person. Answers questions and follows commends. Pupils are equal round and reactive to light and accommodation. Funduscopic exam: No papilledema. Extraocular movements are intact. Visual field exam shows no defect on the direct confrontation. No motor or sensory deficits on the facial exam. Uvula in the midline and the soft palate elevated symmetrically. No deviation of the tongue to any direction. Gross hearing is normal. Shoulder shrug normal. Muscle tone is normal. Muscle strength is 5. Deep tendon reflexes are 2+ all around. Plantar reflex is with flexion response bilaterally. [id number]-ju-[id number] test performance is accurate. Tandem walk test is accurate. Alternative movements are accurate. Romberg test is negative. Gait is normal. Sensory exam shows no deficits. No cerebellar signs are elicited. Review of Relevant I have reviewed the following items hiral (where applicable) has been applied. Labs Laboratory Tests Test 07/10/16 11:35 07/12/16 09:35 Erythrocyte Sedimentation Rate 8 (0-25) Sodium Level 144mmol/L (136-145) Potassium Level 3.5mmol/L (3.5-5.1) Chloride Level 109mmol/L (98-107) Carbon Dioxide Level 27mmol/L (21-32) Anion Gap 8 (6-14) Blood Urea Nitrogen 16mg/dL (7-20) Creatinine 0.9mg/dL (0.6-1.0) Estimated GFR (Cockcroft-Gault) 61.7 BUN/Creatinine Ratio 18 (6-20) Glucose Level 226mg/dL (70-99) Calcium Level 8.5mg/dL (8.5-10.1) Magnesium Level 2.2mg/dL (1.8-2.4) Total Bilirubin 0.4mg/dL (0.2-1.0) Aspartate Amino Transf (AST/SGOT) 12U/L (15-37) Alanine Aminotransferase (ALT/SGPT) 9U/L (14-59) Alkaline Phosphatase 62U/L (46-116) Total Protein 5.9g/dL (6.4-8.2) Albumin 2.6g/dL (3.4-5.0) Albumin/Globulin Ratio 0.8 (1.0-1.7) Thyroid Stimulating Hormone (TSH) 0.980uIU/mL (0.358-3.74) Laboratory Tests Test 07/12/16 09:35 Sodium Level 144mmol/L (136-145) Potassium Level 3.5mmol/L (3.5-5.1) Chloride Level 109mmol/L (98-107) Carbon Dioxide Level 27mmol/L (21-32) Anion Gap 8 (6-14) Blood Urea Nitrogen 16mg/dL (7-20) Creatinine 0.9mg/dL (0.6-1.0) Estimated GFR (Cockcroft-Gault) 61.7 BUN/Creatinine Ratio 18 (6-20) Glucose Level 226mg/dL (70-99) Calcium Level 8.5mg/dL (8.5-10.1) Magnesium Level 2.2mg/dL (1.8-2.4) Total Bilirubin 0.4mg/dL (0.2-1.0) Aspartate Amino Transf (AST/SGOT) 12U/L (15-37) Alanine Aminotransferase (ALT/SGPT) 9U/L (14-59) Alkaline Phosphatase 62U/L (46-116) Total Protein 5.9g/dL (6.4-8.2) Albumin 2.6g/dL (3.4-5.0) Albumin/Globulin Ratio 0.8 (1.0-1.7) Thyroid Stimulating Hormone (TSH) 0.980uIU/mL (0.358-3.74) Medications Current Medications Sodium Chloride (Normal Saline Flush) 3 ml PRN DAILY PRN IV AFTER MEDS AND BLOOD DRAWS; Start 07/09/16 at 11:00 Al Hydroxide/Mg Hydroxide (Mylanta Plus Xs) 30 ml PRN Q3HRS PRN PO HEARTBURN / GAS; Start 07/09/16 at 11:00 Magnesium Hydroxide (Milk Of Magnesia) 2,400 mg PRN Q12HR PRN PO CONSTIPATION; Start 07/09/16 at 11:00 Tizanidine HCl (Zanaflex) 8 mg PRN Q8HRS PRN PO MUSCLE SPASMS; Start 07/09/16 at 11:00 Mirtazapine (Remeron) 15 mg QHS PO Last administered on 07/10/16 20:23; Start 07/09/16 at 21:00 Oxycodone/ Acetaminophen (Percocet 7.5/ 325) 1 tab PRN Q6HRS PRN PO SEVERE PAIN ; Start 07/09/16 at 11:00 Divalproex Sodium (Depakote Er) 1,500 mg QHS PO Last administered on 07/11/16 20:21; Start 07/09/16 at 21:00 Dihydroergotamine Mesylate (Dhe) 1 mg Q8HRS IVP Last administered on 07/11/16 05:53; Start 07/09/16 at 14:00; Stop 07/11/16 at 13:10; Status DC Metoclopramide HCl (Reglan) 10 mg Q8H IV Last administered on 07/10/16 05:34; Start 07/09/16 at 13:30; Stop 07/10/16 at 10:43; Status DC Diphenoxylate HCl/ Atropine (Lomotil) 1 tab PRN QID PRN PO DIARRHEA Last administered on 07/10/16 20:23; Start 07/09/16 at 11:00; Stop 07/11/16 at 11:26; Status DC Acetaminophen (Tylenol) 325 mg PRN Q6HRS PRN PO MILD PAIN / TEMP; Start at 16:45 Acetaminophen/ Hydrocodone Bitart (Lortab 5/325) 1 tab PRN Q6HRS PRN PO MODERATE PAIN Last administered on 07/11/16 08:20; Start 07/09/16 at 16:45 Hydralazine HCl (Apresoline) 10 mg PRN Q4HRS PRN IVP ELEVATED BP, SEE COMMENTS ; Start 07/09/16 at 16:45 Ondansetron HCl (Zofran) 4 mg PRN Q8HRS PRN IV NAUSEA/VOMITING 1ST CHOICE Last administered on 07/11/16 20:15; Start 07/09/16 at 16:45 Albuterol Sulfate (Ventolin Neb Soln) 2.5 mg PRN Q4HRS PRN NEB SHORTNESS OF BREATH; Start 07/09/16 at 16:45 Pantoprazole Sodium (Protonix) 40 mg DAILYAC PO Last administered on 07/12/16 07:10; Start 07/10/16 at 11:30 Enoxaparin Sodium (Lovenox 40mg Syringe) 40 mg Q24H SQ ; Start 07/10/16 at 09:30 Metoclopramide HCl (Reglan) 10 mg PRN TID PRN IV NAUSEA 2ND CHOICE; Start at 10:45; Stop 07/11/16 at 11:26; Status DC Loperamide HCl (Imodium) 2 mg PRN Q1HR PRN PO DIARRHEA Last administered on 07/11 20:10; Start 07/10/16 at 10:45 Bupropion HCl (Wellbutrin Xl) 300 mg DAILY PO ; Start 07/12/16 at 09:00; Stop 07/12/16 at 09:00; Status DC Clonazepam (Klonopin) 0.5 mg PRN TID PRN PO anxiety; Start 07/11/16 at 10:45 Divalproex Sodium (Depakote Er) 2,000 mg QHS PO ; Start 07/11/16 at 21:00; Stop 07/11/16 at 21:00; Status DC Levothyroxine Sodium (Synthroid) 25 mcg DAILY07 PO Last administered on 07:10; Start 07/11/16 at 12:00 Morphine Sulfate (Ms Contin) 30 mg PRN BID PRN PO PAIN; Start 07/11/16 at 10:45 Oxycodone HCl (Roxicodone) 5 mg PRN Q6HRS PRN PO PAIN; Start 07/11/16 at 10:45 Mirtazapine (Remeron) 45 mg QHS PO Last administered on 07/11/16 20:21; Start 07/11/16 at 21:00 Paroxetine HCl (Paxil) 30 mg HS PO Last administered on 07/11/16 20:20; Start 07/11/16 at 21:00 Bupropion HCl (Wellbutrin Xl) 300 mg DAILY PO Last administered on 07/12/16 09: 05; Start 07/11/16 at 12:00 Prochlorperazine Edisylate (Compazine) 10 mg 1X ONCE IV Last administered on 11:31; Start 07/11/16 at 12:00; Stop 07/11/16 at 12:01; Status DC Diphenoxylate HCl/ Atropine (Lomotil) 1 tab PRN Q15MIN PRN PO DIARRHEA Last administered on 07/11/16 11:31; Start 07/11/16 at 11:30 Prochlorperazine Edisylate (Compazine) 10 mg PRN Q6HRS PRN IV NAUSEA/VOMITING; Start 07/11/16 at 18:00 Active Scripts Active Paroxetine Hcl 10 Mg Tablet 30 Mg PO HS Oxycodone Hcl 5 Mg Tablet 5 Mg PO PRN Q6HRS PRN Morphine Sulfate Er (Morphine Sulfate) 30 Mg Tablet.er 30 Mg PO PRN BID PRN Mirtazapine 15 Mg Tablet 15 Mg PO QHS Depakote Er (Divalproex Sodium) 500 Mg Tab.er.24h 2,000 Mg PO QHS Bupropion Xl (Bupropion Hcl) 150 Mg Tab.er.24h 300 Mg PO DAILY Alprazolam 0.5 Mg Tablet 0.5 Mg PO PRN Q6HRS PRN Reported Klonopin (Clonazepam) 0.5 Mg Tablet 1 Tab PO DAILY Synthroid (Levothyroxine Sodium) 25 Mcg Tablet 1 Tab PO DAILY Remeron (Mirtazapine) 45 Mg Tablet 45 Mg PO DAILY Vitals/I & O Vital Sign - Last 24 Hours 07/11/16 07/11/16 07/11/16 07/11/16 11:32 13:15 15:30 19:40 Temp 97.6 98.1 98.5 97.4 97.6 98.1 98.5 97.4 Pulse 40 36 48 47 Resp 16 16 16 16 B/P 145/43 121/38 124/44 128/60 Pulse Ox 96 94 92 94 O2 Delivery Room Air Room Air Room Air Room Air 07/11/16 07/11/16 07/12/16 07/12/16 19:45 23:50 03:00 07:59 Temp 98.2 98.0 97.8 98.2 98.0 97.8 Pulse 45 51 60 Resp 16 B/P 122/58 116/58 93/50 Pulse Ox 94 94 87 O2 Delivery Room Air Room Air Room Air Room Air Intake and Output 07/11/16 07/11/16 07/12/16 15:00 23:00 07:00 Intake Total 400 ml 0 ml Balance 400 ml 0 ml LG SCHWAB MD Jul 12, 2016 11:14
--- NOTE | 2016-07-12 11:31 | PDOC ---
PROGRESS NOTES Chief Complaint Chief Complaint Intractable migraine ASSESSMENT AND PLAN: 1. Migraine: med regimen as per neurology 2. Nausea: related to (1.). on reglan, but with diarrhea. switch to compazine 3. Diarrhea: chronic issue, but severe here. pt wants to go home ( embarrassed). increase lomotil to 2 4. HTN: borderline high, poss pain-related. hydralazine PRN 5. Bradycardia: asymptomatic. monitor. d/w her: apparently new to her, sees PCP regularly. HR dropping into 30s. cardiac consult, transfer to 2nd floor 6. Pain control: on percocet PRN 7. Prophylaxis: lovenox, PPI History of Present Illness History of Present Illness Discussed with cards Needs event monitor as OP (had some tachy-idania syndrome) BUt pt wishes to ff up with her own cards NOw having bedside echo NO other events overnight Follows with Dr garrett for her intractable long standing hx migraines Neuro is PRIMARY PLAn: Dc meds and orders done if echo ok today Pato RN and cards Dc summ per primary service ([facility] only on consult) Vitals Vitals Vital Signs Date Time Temp Pulse Resp B/P Pulse Ox O2 Delivery O2 Flow Rate FiO2 07/12/16 11:14 55 95/57 07/12/16 11:12 98.0 18 94 Room Air 98.0 Physical Exam General: Alert, Oriented X3, Cooperative, No acute distress Heart: Regular rate, Normal S1, Normal S2, Other Lungs: Clear Abdomen: Normal bowel sounds, Soft, No tenderness Extremities: No cyanosis, No edema Skin: No breakdown, No significant lesion Labs LABS Laboratory Tests Test 07/12/16 09:35 Sodium Level 144mmol/L (136-145) Potassium Level 3.5mmol/L (3.5-5.1) Chloride Level 109mmol/L (98-107) Carbon Dioxide Level 27mmol/L (21-32) Anion Gap 8 (6-14) Blood Urea Nitrogen 16mg/dL (7-20) Creatinine 0.9mg/dL (0.6-1.0) Estimated GFR (Cockcroft-Gault) 61.7 BUN/Creatinine Ratio 18 (6-20) Glucose Level 226mg/dL (70-99) Calcium Level 8.5mg/dL (8.5-10.1) Magnesium Level 2.2mg/dL (1.8-2.4) Total Bilirubin 0.4mg/dL (0.2-1.0) Aspartate Amino Transf (AST/SGOT) 12U/L (15-37) Alanine Aminotransferase (ALT/SGPT) 9U/L (14-59) Alkaline Phosphatase 62U/L (46-116) Total Protein 5.9g/dL (6.4-8.2) Albumin 2.6g/dL (3.4-5.0) Albumin/Globulin Ratio 0.8 (1.0-1.7) Thyroid Stimulating Hormone (TSH) 0.980uIU/mL (0.358-3.74) Review of Systems Review of Systems headaches - chronic stable, all else is neg Assessment and Plan Assessmemt and Plan Problems Medical Problems: (1) Intractable migraine Status: Acute Problems: Comment Review of Relevant I have reviewed the following items hiral (where applicable) has been applied. Labs Laboratory Tests Test 07/10/16 11:35 07/12/16 09:35 Erythrocyte Sedimentation Rate 8 (0-25) Sodium Level 144mmol/L (136-145) Potassium Level 3.5mmol/L (3.5-5.1) Chloride Level 109mmol/L (98-107) Carbon Dioxide Level 27mmol/L (21-32) Anion Gap 8 (6-14) Blood Urea Nitrogen 16mg/dL (7-20) Creatinine 0.9mg/dL (0.6-1.0) Estimated GFR (Cockcroft-Gault) 61.7 BUN/Creatinine Ratio 18 (6-20) Glucose Level 226mg/dL (70-99) Calcium Level 8.5mg/dL (8.5-10.1) Magnesium Level 2.2mg/dL (1.8-2.4) Total Bilirubin 0.4mg/dL (0.2-1.0) Aspartate Amino Transf (AST/SGOT) 12U/L (15-37) Alanine Aminotransferase (ALT/SGPT) 9U/L (14-59) Alkaline Phosphatase 62U/L (46-116) Total Protein 5.9g/dL (6.4-8.2) Albumin 2.6g/dL (3.4-5.0) Albumin/Globulin Ratio 0.8 (1.0-1.7) Thyroid Stimulating Hormone (TSH) 0.980uIU/mL (0.358-3.74) Laboratory Tests Test 07/12/16 09:35 Sodium Level 144mmol/L (136-145) Potassium Level 3.5mmol/L (3.5-5.1) Chloride Level 109mmol/L (98-107) Carbon Dioxide Level 27mmol/L (21-32) Anion Gap 8 (6-14) Blood Urea Nitrogen 16mg/dL (7-20) Creatinine 0.9mg/dL (0.6-1.0) Estimated GFR (Cockcroft-Gault) 61.7 BUN/Creatinine Ratio 18 (6-20) Glucose Level 226mg/dL (70-99) Calcium Level 8.5mg/dL (8.5-10.1) Magnesium Level 2.2mg/dL (1.8-2.4) Total Bilirubin 0.4mg/dL (0.2-1.0) Aspartate Amino Transf (AST/SGOT) 12U/L (15-37) Alanine Aminotransferase (ALT/SGPT) 9U/L (14-59) Alkaline Phosphatase 62U/L (46-116) Total Protein 5.9g/dL (6.4-8.2) Albumin 2.6g/dL (3.4-5.0) Albumin/Globulin Ratio 0.8 (1.0-1.7) Thyroid Stimulating Hormone (TSH) 0.980uIU/mL (0.358-3.74) Medications Current Medications Sodium Chloride (Normal Saline Flush) 3 ml PRN DAILY PRN IV AFTER MEDS AND BLOOD DRAWS; Start 07/09/16 at 11:00 Al Hydroxide/Mg Hydroxide (Mylanta Plus Xs) 30 ml PRN Q3HRS PRN PO HEARTBURN / GAS; Start 07/09/16 at 11:00 Magnesium Hydroxide (Milk Of Magnesia) 2,400 mg PRN Q12HR PRN PO CONSTIPATION; Start 07/09/16 at 11:00 Tizanidine HCl (Zanaflex) 8 mg PRN Q8HRS PRN PO MUSCLE SPASMS; Start 07/09/16 at 11:00 Mirtazapine (Remeron) 15 mg QHS PO Last administered on 07/10/16t 20:23; Start 07/09/16 at 21:00 Oxycodone/ Acetaminophen (Percocet 7.5/ 325) 1 tab PRN Q6HRS PRN PO SEVERE PAIN ; Start 07/09/16 at 11:00 Divalproex Sodium (Depakote Er) 1,500 mg QHS PO Last administered on 07/11/16 20:21; Start 07/09/16 at 21:00 Dihydroergotamine Mesylate (Dhe) 1 mg Q8HRS IVP Last administered on 07/11/16 05:53; Start 07/09/16 at 14:00; Stop 07/11/16 at 13:10; Status DC Metoclopramide HCl (Reglan) 10 mg Q8H IV Last administered on 07/10/16 05:34; Start 07/09/16 at 13:30; Stop 07/10/16 at 10:43; Status DC Diphenoxylate HCl/ Atropine (Lomotil) 1 tab PRN QID PRN PO DIARRHEA Last administered on 07/10/16 20:23; Start 07/09/16 at 11:00; Stop 07/11/16 at 11:26; Status DC Acetaminophen (Tylenol) 325 mg PRN Q6HRS PRN PO MILD PAIN / TEMP; Start at 16:45 Acetaminophen/ Hydrocodone Bitart (Lortab 5/325) 1 tab PRN Q6HRS PRN PO MODERATE PAIN Last administered on 07/11/16 08:20; Start 07/09/16 at 16:45 Hydralazine HCl (Apresoline) 10 mg PRN Q4HRS PRN IVP ELEVATED BP, SEE COMMENTS ; Start 07/09/16 at 16:45 Ondansetron HCl (Zofran) 4 mg PRN Q8HRS PRN IV NAUSEA/VOMITING 1ST CHOICE Last administered on 07/11/16 20:15; Start 07/09/16 at 16:45 Albuterol Sulfate (Ventolin Neb Soln) 2.5 mg PRN Q4HRS PRN NEB SHORTNESS OF BREATH; Start 07/09/16 at 16:45 Pantoprazole Sodium (Protonix) 40 mg DAILYAC PO Last administered on 07/12/16 07:10; Start 07/10/16 at 11:30 Enoxaparin Sodium (Lovenox 40mg Syringe) 40 mg Q24H SQ ; Start 07/10/16 at 09:30 Metoclopramide HCl (Reglan) 10 mg PRN TID PRN IV NAUSEA 2ND CHOICE; Start at 10:45; Stop 07/11/16 at 11:26; Status DC Loperamide HCl (Imodium) 2 mg PRN Q1HR PRN PO DIARRHEA Last administered on 07/11 20:10; Start 07/10/16 at 10:45 Bupropion HCl (Wellbutrin Xl) 300 mg DAILY PO ; Start 07/12/16 at 09:00; Stop 07/12/16 at 09:00; Status DC Clonazepam (Klonopin) 0.5 mg PRN TID PRN PO anxiety; Start 07/11/16 at 10:45 Divalproex Sodium (Depakote Er) 2,000 mg QHS PO ; Start 07/11/16 at 21:00; Stop 07/11/16 at 21:00; Status DC Levothyroxine Sodium (Synthroid) 25 mcg DAILY07 PO Last administered on 07:10; Start 07/11/16 at 12:00 Morphine Sulfate (Ms Contin) 30 mg PRN BID PRN PO PAIN; Start 07/11/16 at 10:45 Oxycodone HCl (Roxicodone) 5 mg PRN Q6HRS PRN PO PAIN; Start 07/11/16 at 10:45 Mirtazapine (Remeron) 45 mg QHS PO Last administered on 07/11/16 20:21; Start 07/11/16 at 21:00 Paroxetine HCl (Paxil) 30 mg HS PO Last administered on 07/11/16 20:20; Start 07/11/16 at 21:00 Bupropion HCl (Wellbutrin Xl) 300 mg DAILY PO Last administered on 07/12/16 09: 05; Start 07/11/16 at 12:00 Prochlorperazine Edisylate (Compazine) 10 mg 1X ONCE IV Last administered on 11:31; Start 07/11/16 at 12:00; Stop 07/11/16 at 12:01; Status DC Diphenoxylate HCl/ Atropine (Lomotil) 1 tab PRN Q15MIN PRN PO DIARRHEA Last administered on 07/11/16t 11:31; Start 07/11/16 at 11:30 Prochlorperazine Edisylate (Compazine) 10 mg PRN Q6HRS PRN IV NAUSEA/VOMITING; Start 07/11/16 at 18:00 Active Scripts Active Paroxetine Hcl 10 Mg Tablet 30 Mg PO HS Oxycodone Hcl 5 Mg Tablet 5 Mg PO PRN Q6HRS PRN Morphine Sulfate Er (Morphine Sulfate) 30 Mg Tablet.er 30 Mg PO PRN BID PRN Mirtazapine 15 Mg Tablet 15 Mg PO QHS Depakote Er (Divalproex Sodium) 500 Mg Tab.er.24h 2,000 Mg PO QHS Bupropion Xl (Bupropion Hcl) 150 Mg Tab.er.24h 300 Mg PO DAILY Alprazolam 0.5 Mg Tablet 0.5 Mg PO PRN Q6HRS PRN Reported Klonopin (Clonazepam) 0.5 Mg Tablet 1 Tab PO DAILY Synthroid (Levothyroxine Sodium) 25 Mcg Tablet 1 Tab PO DAILY Remeron (Mirtazapine) 45 Mg Tablet 45 Mg PO DAILY Vitals/I & O Vital Sign - Last 24 Hours 07/11/16 07/11/16 07/11/16 07/11/16 11:32 13:15 15:30 19:40 Temp 97.6 98.1 98.5 97.4 97.6 98.1 98.5 97.4 Pulse 40 36 48 47 Resp 16 16 16 16 B/P 145/43 121/38 124/44 128/60 Pulse Ox 96 94 92 94 O2 Delivery Room Air Room Air Room Air Room Air 07/11/16 07/11/16 07/12/16 07/12/16 19:45 23:50 03:00 07:59 Temp 98.2 98.0 97.8 98.2 98.0 97.8 Pulse 45 51 60 Resp 14 18 16 B/P 122/58 116/58 93/50 Pulse Ox 94 94 87 O2 Delivery Room Air Room Air Room Air Room Air 07/12/16 07/12/16 07/12/16 11:12 11:13 11:14 Temp 98.0 98.0 Pulse 57 61 55 Resp 18 B/P 95/49 91/52 95/57 Pulse Ox 94 O2 Delivery Room Air Intake and Output 07/11/16 07/11/16 07/12/16 14:59 22:59 06:59 Intake Total 400 ml 0 ml Balance 400 ml 0 ml RAFFY ALBERTS MD Jul 12, 2016 11:31
--- NOTE | 2016-07-12 14:13 | CARD ---
APPROVED REPORT EXAM: Two-dimensional and M-mode echocardiogram with Doppler and color Doppler. Other Information Quality : ExcellentGoodHR: 50bpm Rhythm : Bradycardia INDICATION Bradycardia 2D DIMENSIONS RVDd3.0 (2.9-3.5cm)Left Atrium(2D)3.6 (1.6-4.0cm) IVSd0.9 (0.7-1.1cm)Aortic Root(2D)2.9 (2.0-3.7cm) LVDd4.4 (3.9-5.9cm)LVOT Diameter2.2 (1.8-2.4cm) PWd0.9 (0.7-1.1cm)LVDs2.9 (2.5-4.0cm) FS (%) 33.9 %SV56.2 ml LVEF(%)63.0 (>50%) Aortic Valve AoV Peak Mike.115.1cm/sAoV VTI22.6cm AO Peak GR.5.3mmHgLVOT VTI 24.57cm AO Mean GR.3mmHg Mitral Valve MV E Oynyuihi06.6cm/sMV E Peak Gr.2mmHg MV DECEL [id number] A Ekudsytg91.6cm/s MV E Mean Gr.1mmHgE/A Ratio1.4 MV A [id number] TDI Lateral E' P. V9.78cm/sMedial E' P. V8.30cm/s E/Lateral E'7.8E/Medial E'9.2 Tricuspid Valve TR P. Ysqijins599zm/sRAP [id number] TR Peak Gr.26mmHg Pulmonary Vein S1 Rusbqpsw98.8cm/sS2 Kdkvktge45.40cm/s D2 Mcpzhauv88.4cm/sPVa [id number] LEFT VENTRICLE The left ventricle is normal size. There is normal left ventricular wall thickness. The left ventricu lar systolic function is normal. The Ejection Fraction is 60-65%. There is normal LV segmental wall m otion. The left ventricular diastolic function and filling is normal for age. RIGHT VENTRICLE The right ventricle is normal size. There is normal right ventricular wall thickness. The right ventr icular systolic function is normal. ATRIA The left atrium size is normal. The right atrium size is normal. The interatrial septum is intact wit h no evidence for an atrial septal defect or patent foramen ovale as noted on 2-D or Doppler imaging. AORTIC VALVE The aortic valve is mildly thickened. The aortic valve is trileaflet. Doppler and Color Flow revealed no significant aortic regurgitation. There is no significant aortic valvular stenosis. MITRAL VALVE Mitral annular calcification is mild. The mitral valve leaflets are thickened. There is no evidence o f mitral valve prolapse. There is no mitral valve stenosis. Doppler and Color Flow revealed trace amrik ral regurgitation. TRICUSPID VALVE Doppler and Color Flow revealed mild tricuspid regurgitation. The pulmonary artery systolic pressure is estimated at 29 mmHg. There is no pulmonary hypertension. PULMONIC VALVE The pulmonary valve is normal in structure and function. Doppler and Color Flow revealed no pulmonic valvular regurgitation. There is no pulmonic valvular stenosis. GREAT VESSELS The aortic root is normal in size. The ascending aorta is normal in size. The pulmonary artery is nor mal. The IVC is normal in size and collapses >50% with inspiration. PERICARDIAL EFFUSION There is no evidence of significant pericardial effusion. Critical Notification Critical Value: No <Conclusion> The left ventricular systolic function is normal. The Ejection Fraction is 60-65%. There is normal LV segmental wall motion. Trace mitral regurgitation. Mild tricuspid regurgitation. The pulmonary artery systolic pressure is estimated at 29 mmHg. There is no evidence of significant pericardial effusion.
[2016-07-19] MEDS ORDERED: ALPRAZOLAM 0.5 MG TABLET. PO PRN (11:45)
--- NOTE | 2016-07-19 11:45 | PDOC3 ---
Discharge Summary* Date of Admission: Jul 09, 2016 Date of Discharge: Jul 12, 2016 Admitting Diagnosis Problems Medical Problems: (1) Intractable migraine Status: Acute Final Diagnosis Problems Medical Problems: (1) Intractable migraine Status: Acute Bradycardia Hyperglycemia CONSULTS Cardiology Internal Medicine Procedures None Brief Hospital Course Ms. Briceño is a 71 old female who presented with status migrant gnosis. She was started on DHE. She did develop asymptomatic bradycardia. Cardiology saw her and recommended an event monitor which will be done through her primary physician as an outpatient. Headache had resolved to 5/10 by the final hospital day. DHE was held because the bradycardia, but I plan to use DHE again if necessary as I do not think it was because the bradycardia; rather, bradycardia was due to pain. Disposition/Orders: D/C to Home CONDITION AT DISCHARGE: Improved Diet: Regular Scheduled Bupropion Hcl (Bupropion Xl) 300 MG PO DAILY Clonazepam (Klonopin) 1 TAB PO DAILY (Reported) Divalproex Sodium (Depakote Er) 2,000 MG PO QHS Levothyroxine Sodium (Synthroid) 1 TAB PO DAILY (Reported) Mirtazapine (Mirtazapine) 15 MG PO QHS Mirtazapine (Remeron) 45 MG PO DAILY (Reported) Paroxetine Hcl (Paroxetine Hcl) 30 MG PO HS Scheduled PRN Alprazolam (Alprazolam) 0.5 MG PO PRN Q6HRS PRN PRN ANXIETY / AGITATION Morphine Sulfate (Morphine Sulfate Er) 30 MG PO PRN BID PRN PRN PAIN Oxycodone Hcl (Oxycodone Hcl) 5 MG PO PRN Q6HRS PRN PRN PAIN FOLLOW UP APPOINTMENT: [address] Bran Time Spent Total time spent with patient [] minutes for coordination of care, counseling, and education. LG SCHWAB MD Jul 19, 2016 11:45
[2016-07-19] MEDS ORDERED: MIRTAZAPINE 15 MG TABLET PO SCH (21:00)
== END 2016-07-12 15:30 | disposition home or self-care (01) | DRG 103 ==
LOC: 6 SOUTH 09:08 → 2 NORTH 07-11 12:50
PROVIDERS: ADMIT Psychiatry & Neurology Neurology with Special Qualifications in Child Neurology; ATTEND Psychiatry & Neurology Neurology with Special Qualifications in Child Neurology
DX: G43.901 Migraine, unspecified, not intractable, with status migrainosus (principal); R64 Cachexia; Z68.1 Body mass index [BMI] 19.9 or less, adult; E03.9 Hypothyroidism, unspecified; F31.9 Bipolar disorder, unspecified; I10 Essential (primary) hypertension; I25.10 Atherosclerotic heart disease of native coronary artery without angina pectoris; J44.9 Chronic obstructive pulmonary disease, unspecified; M19.90 Unspecified osteoarthritis, unspecified site; K21.9 Gastro-esophageal reflux disease without esophagitis; K58.0 Irritable bowel syndrome with diarrhea; Z82.49 Family history of ischemic heart disease and other diseases of the circulatory system; Z90.49 Acquired absence of other specified parts of digestive tract; Z90.710 Acquired absence of both cervix and uterus; Z79.899 Other long term (current) drug therapy; I49.8 Other specified cardiac arrhythmias; K52.9 Noninfective gastroenteritis and colitis, unspecified
CPT/HCPCS: 36415; 80048; 80053; 83735; 84443; 85027; 85651; 93005; 93306; 94250; J0780; J1110; J2405; J2765